=== PATIENT | male | born 1970 | race Hispanic/Latino ===

== ENCOUNTER 2018-07-17 15:23 | Emergency (ER) | payer SELFPAY ==
[~2018-07-17 15:23] MED LIST: ISOVUE-370 76%-LOCM 1 ML ONE
[2018-07-17] MEDS ORDERED: Ketorolac Tromethamine 30 MG/ML VIAL ONE (16:06)
[2018-07-17] MEDS ORDERED: Morphine 4 MG/ML VIAL ONE (16:07)
[2018-07-17 16:08] LABS: #Basophils 0.1 thou/uL (0.0-0.2); #Lymphocytes 1.9 thou/uL (1.20-3.40); #Monocytes 0.7 thou/uL (0.11-0.59); #Neutrophils 8.9 thou/uL (1.40-6.50); %Basophils 0.7 % (0.0-1.0); %Eosinophils 0.4 % (0.0-10.0); %Lymphocytes 16.2 % (21.0-51.0); %Neutrophils 76.7 % (42.0-75.0); Hemoglobin 16.4 g/dL (14.0-18.0); Mean Corpuscular HGB CONC 33.3 g/dL (32.0-36.0); Mean Corpuscular Hemoglobin 30.4 pg (27.0-31.0); Mean Corpuscular Volume 91.3 fL (78.0-98.0); Platelet Count 274 thou/uL (130-400); RBC Distribution Width 11.9 % (11.5-14.5); Red Blood Cell (RBC) Count 5.38 mill/uL (4.70-6.10); White Blood Cell (WBC) Count 11.6 thou/uL (4.8-10.8)
[2018-07-17 16:25] LABS: ALT (SGPT) 98 U/L (8-55); AST (SGOT) 60 U/L (5-34); Acetaminophen Less than 6.0 mcg/mL (10.0-30.0); Albumin 4.3 g/dL (3.5-5.0); Alcohol 93 mg/dL (Less than 10); Alkaline Phosphatase 105 U/L (40-150); Anion Gap 17 mmol/L (10-20); BUN (Urea Nitrogen) 12 mg/dL (8.9-20.6); Bilirubin, Total 0.4 mg/dL (0.2-1.2); Calc. Creatinine Clearance 0 mL/min (70-130); Calcium 9.4 mg/dL (7.8-10.44); Carbon Dioxide 21 mmol/L (22-29); Chloride 106 mmol/L (98-107); Estimated GFR-MDRD Greater than 90; Globulin 3.7 g/dL (2.4-3.5); Glucose 127 mg/dL (70-105); Potassium 4.2 mmol/L (3.5-5.1); Salicylate Less than 8.0 mg/dL (15.0-30.0); Sodium 140 mmol/L (136-145)
--- NOTE | 2018-07-17 16:27 | RAD ---
PORTABLE CHEST 1 VIEW: INDICATION: CHEST PAIN Comparison: None. FINDINGS: Lungs are clear. Heart size is normal. No acute osseous abnormality is evident. IMPRESSION: No acute cardiopulmonary abnormality visualized. POS: [facility]
[2018-07-17 17:44] LABS: Bilirubin Negative (Negative); Blood, Urine Negative (Negative); Clarity CLEAR (Clear); Glucose, Urine (Dipstick) Negative (Negative); Leukocyte Negative (Negative); Nitrite Negative (Negative); Protein, Urine (Dipstick) Negative (Neg-Trace); Specific Gravity, Urine 1.017 (1.002-1.036); Urobilinogen 0.2 mg/dL (0.2-1.0); pH, Urine 5.5 (5.0-9.0)
[2018-07-17 18:01] LABS: Amphetamine Not Detected (NotDetected); Barbiturates Screen Not Detected (NotDetected); Benzodiazepine Screen Not Detected (NotDetected); Cocaine Metabolite Screen Not Detected (NotDetected); Medtox Control Line Valid? VALID (VALID); Medtox Reader # READER 4; Methadone Not Detected (NotDetected); Methamphetamine Not Detected (NotDetected); Opiate Screen Detected (NotDetected); Oxycodone Screen Not Detected (NotDetected); Phencyclidine (PCP) Not Detected (NotDetected); THC/Cannabinoid Screen Not Detected (NotDetected); Tricyclic Screen Not Detected (NotDetected)
[2018-07-17 19:07] LABS: Lactic Acid 2.8 mmol/L (0.5-2.2)
--- NOTE | 2018-07-17 19:08 | CT ---
CTA OF THE THORAX UTILIZING IV CONTRAST AND 3D REFORMATTED IMAGING: Indication: 47-year-old male with chest pain. Comparison: None. FINDINGS: No central or segmental pulmonary embolus is evident. The lungs are clear. No pleural effusion or pneumothorax is evident. No enlarged lymph nodes are evident. There is fatty infiltration of the liver. No acute osseous abnormality is evident. IMPRESSION: 1. No central or segmental pulmonary embolus. 2. No acute cardiopulmonary abnormality demonstrated. 3. Fatty liver. POS: [facility]
[2018-07-17 19:59] LABS: Lactic Acid 2.6 mmol/L (0.5-2.2)
[2018-07-17] MEDS ORDERED: Ondansetron ODT 4 MG TAB ONE (19:59)
== END 2018-07-17 19:52 | disposition home or self-care (01) ==
LOC: ERS 15:23
DX: K29.20 Alcoholic gastritis without bleeding (principal); E86.0 Dehydration; Z79.899 Other long term (current) drug therapy
CPT/HCPCS: 36415; 71045; 71275; 80053; 80306; 80307; 81003; 83605; 83690; 83735; 84484; 85025; 85379; 93005; 96361; 96374; 96375; J1885; J2270; Q0162; Q9966